=== PATIENT | female | born 1960 | race Caucasian/White ===

== ENCOUNTER 2017-09-14 09:35 | Emergency (ER) | payer MEDICAID ==
[~2017-09-14] VITALS: Ht 157.5 cm; Wt 77.1 kg
[2017-09-14] MEDS ORDERED: IV NORMAL SALINE 1,000ML 1,000 ML IV SCH (10:06)
[2017-09-14] MEDS ORDERED: KETOROLAC 30 MG/ML VIAL. IV ONE (10:15)
[2017-09-14] MEDS ORDERED: ONDANSETRON PF 4 MG/2 ML VIAL. IV ONE (10:15)
[2017-09-14 10:29] LABS: BASO # 0.1 x10^3/uL (0.0-0.2); BASO % 1 % (0-3); EOS # 0.1 x10^3/uL (0.0-0.7); EOS % 1 % (0-3); HEMATOCRIT 51.9 % (36.0-47.0); HEMOGLOBIN 17.7 g/dL (12.0-15.5); LYMPH # 2.2 x10^3/uL (1.0-4.8); LYMPH % 17 % (24-48); MEAN CORPUSCULAR HEMOGLOBIN 29 pg (25-35); MEAN CORPUSCULAR HGB CONC 34 g/dL (31-37); MEAN CORPUSCULAR VOLUME 86 fL (79-100); MONO # 0.8 x10^3/uL (0.0-1.1); MONO % 6 % (0-9); NEUT # 9.4 x10^3uL (1.8-7.7); NEUT % 75 % (31-73); PLATELET COUNT 213 x10^3/uL (140-400); RED BLOOD COUNT 6.03 x10^6/uL (3.50-5.40); RED CELL DISTRIBUTION WIDTH 13.1 % (11.5-14.5); WHITE BLOOD COUNT 12.6 x10^3/uL (4.0-11.0)
[2017-09-14 10:34] LABS: BILIRUBIN,URINE NEG (NEG); CLARITY,URINE CLEAR; COLOR,URINE YELLOW; GLUCOSE,URINE NEG (NEG)
[2017-09-14 10:35] LABS: BACTERIA,URINE 0 /HPF (0-FEW); NITRITE,URINE NEG (NEG); SQUAMOUS EPITHELIAL CELL,UR OCC /LPF; UROBILINOGEN,URINE 0.2 mg/dL (0.2 mg/dL); WBC,URINE 0 /HPF (0-4)
[2017-09-14 10:40] LABS: ALBUMIN 4.4 g/dL (3.4-5.0); ALBUMIN/GLOBULIN RATIO 1.2 (1.0-1.7); CALCIUM 10.4 mg/dL (8.5-10.1); CREATININE 1.2 mg/dL (0.6-1.0); GFR 46.6; TOTAL BILIRUBIN 0.7 mg/dL (0.2-1.0); TOTAL PROTEIN 8.2 g/dL (6.4-8.2)
--- NOTE | 2017-09-14 10:48 | RAD ---
Indication: Right flank pain. Axial imaging through the abdomen and pelvis was performed without contrast. No prior studies are available for comparison. The lung bases are clear. The liver does show a somewhat nodular contour, raising the question of cirrhosis. No discrete liver mass is identified. The gallbladder contains multiple stones. The pancreas is unremarkable. The spleen is normal in size. No adrenal mass is identified. Left kidney is unremarkable. The right kidney is enlarged and demonstrates significant hydroureteronephrosis. The dilated right ureter is traced into the pelvis where there is a 4 mm calculus in the distal right ureter just proximal to the UVJ. There is some mild right perinephric stranding and minimal fluid, suspicious for forniceal rupture. There is a tiny approximately 2 to 3 mm calculus in the region of the left UVJ or just within the urinary bladder. No hydronephrosis on the left side is identified. Aorta is heavily calcified but nonaneurysmal. The small and large bowel loops are normal caliber. There is no ascites. Impression: 1. 4 mm distal right ureteric calculus producing significant hydroureteronephrosis. The right kidney is enlarged and there is perinephric inflammatory stranding and a small amount of perinephric fluid present, suspicious for forniceal rupture. 2. 2 to 3 mm distal left ureteric calculus versus bladder calculus without significant hydronephrosis. 3. Cholelithiasis. 4. Nodular contour to the liver, suspicious for cirrhosis. No other significant normality is seen. PQRS Compliance Statement: One or more of the following individualized dose reduction techniques were utilized for this examination: 1. Automated exposure control 2. Adjustment of the mA and/or kV according to patient size 3. Use of iterative reconstruction technique
[2017-09-14] MEDS ORDERED: IV NORMAL SALINE 1,000ML 1,000 ML IV ONE (11:15)
--- NOTE | 2017-09-14 12:32 | PHYS DOC ---
Past History Past Medical History: Arthritis, Hypertension, Other Past Surgical History: Appendectomy, , Tonsillectomy Smoking: Non-smoker Alcohol Use: Occasionally Drug Use: Marijuana Adult General Chief Complaint Chief Complaint: FLANK PAIN HPI HPI 56-year-old female patient complaining of gradual onset of right back and flank pain since yesterday afternoon as a constant aching pain. Patient complaining of sudden onset of sharp pain in right lower quadrant with radiation to her pelvic and her right flank since 2300 last night episodes of nausea as a constant pain. Patient complaining of increasing intensity of pain intermittently and rated her pain 10 over 10. Patient complaining of urinary frequency since last night without hematuria. Patient denies vomiting, diarrhea and constipation, fever and chills, chest pain, shortness of breath, resent dehydration, history of kidney stone. Review of Systems Review of Systems Constitutional: Reports subjective fever and chills [] Eyes: Denies change in visual acuity, redness, or eye pain [] HENT: Denies nasal congestion or sore throat [] Respiratory: Denies cough or shortness of breath [] Cardiovascular: No additional information not addressed in HPI [] GI: Reports abdominal pain, nausea, denies vomiting, bloody stools or diarrhea [ ] : Reports dysuria and hematuria [] Musculoskeletal: Denies back pain or joint pain [] Integument: Denies rash or skin lesions [] Neurologic: Denies headache, focal weakness or sensory changes [] Endocrine: Denies polyuria or polydipsia [] All other systems were reviewed and found to be within normal limits, except as documented in this note. Current Medications Current Medications Current Medications Medications (Trade) Dose Ordered Sig/Natalia Start Time Stop Time Status Last Admin Dose Admin Fentanyl Citrate (Fentanyl 2ml Vial) 50 mcg 1X ONCE 09/14/17 11:30 09/14/17 11:31 DC 09/14/17 11:12 50 MCG Ketorolac Tromethamine (Toradol) 30 mg 1X ONCE 09/14/17 10:15 09/14/17 10:37 DC 09/14/17 10:23 30 MG Ondansetron HCl (Zofran) 4 mg 1X ONCE 09/14/17 10:15 09/14/17 10:37 DC 09/14/17 10:23 4 MG Sodium Chloride 1,000 ml @ 150 mls/hr 1X ONCE 09/14/17 11:15 09/14/17 17:54 09/14/17 11:15 150 MLS/HR Allergies Allergies Allergies Coded Allergies Type Severity Reaction Last Updated Verified Penicillins Allergy Unknown 09/14/17 Yes Uncoded Allergies Type Severity Reaction Last Updated Verified antidepressants Adverse Reaction Unknown 09/14/17 Physical Exam Physical Exam Constitutional: Well developed, well nourished, moderate distress, non-toxic appearance. [] HENT: Normocephalic, atraumatic, bilateral external ears normal, oropharynx moist, no oral exudates, nose normal. [] Eyes: PERRLA, EOMI, conjunctiva normal, no discharge. [] Neck: Normal range of motion, no tenderness, supple, no stridor. [] Cardiovascular:Heart rate regular rhythm, no murmur [] Lungs & Thorax: Bilateral breath sounds clear to auscultation [] Abdomen: Bowel sounds normal, soft, right lower quadrant and right upper tenderness, no masses, no pulsatile masses. [] Skin: Warm, dry, no erythema, no rash. [] Back: No tenderness, right CVA tenderness. [] Extremities: No tenderness, no cyanosis, no clubbing, ROM intact, no edema. [] Neurologic: Alert and oriented X 3, normal motor function, normal sensory function, no focal deficits noted. [] Psychologic: Affect normal, judgement normal, mood normal. [] Current Patient Data Vital Signs Vital Signs Date Time Temp Pulse Resp B/P (MAP) Pulse Ox O2 Delivery O2 Flow Rate FiO2 09/14/17 11:12 20 98 Room Air 09/14/17 09:35 97.9 91 Lab Results Laboratory Tests Test 09/14/17 10:15 09/14/17 11:38 White Blood Count 12.6 x10^3/uL (4.0-11.0) H Red Blood Count 6.03 x10^6/uL (3.50-5.40) H Hemoglobin 17.7 g/dL (12.0-15.5) H Hematocrit 51.9 % (36.0-47.0) H Mean Corpuscular Volume 86 fL (79-100) Mean Corpuscular Hemoglobin 29 pg (25-35) Mean Corpuscular Hemoglobin Concent 34 g/dL (31-37) Red Cell Distribution Width 13.1 % (11.5-14.5) Platelet Count 213 x10^3/uL (140-400) Neutrophils (%) (Auto) 75 % (31-73) H Lymphocytes (%) (Auto) 17 % (24-48) L Monocytes (%) (Auto) 6 % (0-9) Eosinophils (%) (Auto) 1 % (0-3) Basophils (%) (Auto) 1 % (0-3) Neutrophils # (Auto) 9.4 x10^3uL (1.8-7.7) H Lymphocytes # (Auto) 2.2 x10^3/uL (1.0-4.8) Monocytes # (Auto) 0.8 x10^3/uL (0.0-1.1) Eosinophils # (Auto) 0.1 x10^3/uL (0.0-0.7) Basophils # (Auto) 0.1 x10^3/uL (0.0-0.2) Urine Collection Type Unknown Urine Color Yellow Urine Clarity Clear Urine pH 6.5 Urine Specific [place] 1.015 Urine Protein Neg (NEG-TRACE) Urine Glucose (UA) Neg mg/dL (NEG) Urine Ketones (Stick) Trace mg/dL (NEG) Urine Blood Small (NEG) Urine Nitrite Neg (NEG) Urine Bilirubin Neg (NEG) Urine Urobilinogen Dipstick 0.2 mg/dL (0.2 mg/dL) Urine Leukocyte Esterase Neg (NEG) Urine RBC 1-2 /HPF (0-2) Urine WBC 0 /HPF (0-4) Urine Squamous Epithelial Cells Occ /LPF Urine Bacteria 0 /HPF (0-FEW) Sodium Level 136 mmol/L (136-145) Potassium Level 4.0 mmol/L (3.5-5.1) Chloride Level 97 mmol/L (98-107) L Carbon Dioxide Level 28 mmol/L (21-32) Anion Gap 11 (6-14) Blood Urea Nitrogen 13 mg/dL (7-20) Creatinine 1.2 mg/dL (0.6-1.0) H Estimated GFR (Cockcroft-Gault) 46.6 BUN/Creatinine Ratio 11 (6-20) Glucose Level 120 mg/dL (70-99) H Calcium Level 10.4 mg/dL (8.5-10.1) H Total Bilirubin 0.7 mg/dL (0.2-1.0) Aspartate Amino Transferase (AST) 14 U/L (15-37) L Alanine Aminotransferase (ALT) 20 U/L (14-59) Alkaline Phosphatase 74 U/L (46-116) Troponin I Quantitative < 0.017 ng/mL (0-0.055) Total Protein 8.2 g/dL (6.4-8.2) Albumin 4.4 g/dL (3.4-5.0) Albumin/Globulin Ratio 1.2 (1.0-1.7) Lipase 167 U/L (73-393) Lactic Acid Level 1.0 mmol/L (0.4-2.0) EKG EKG [] Radiology/Procedures Radiology/Procedures [] Course & Med Decision Making Course & Med Decision Making Pertinent Labs and Imaging studies reviewed. (See chart for details) Evaluation of patient in ER showed 56-year-old female patient with complaining of sudden onset of back pain and flank pain since yesterday. Patient had kidney stone symptom with leukocytosis and 4 mm obstructing stone in the right UV junction. Lactic acid was negative and patient did not have tachycardia or hypotension or sign of sepsis. Because of nephritic inflammation and edema plan to admit patient to hospital. Hospitalist administrative professional Dr Nguyen was informed at 1126 and recommended to transfer patient to place with urologist.. Patient requesting transferring to [facility]. Dr. Zacarias administrative professional urology and Dr. Seth Ying Hospitalist accepted transfer at 1128 to [facility]. Patient requires several doses of pain medication she was in ER. Dragon Disclaimer Dragon Disclaimer This electronic medical record was generated, in whole or in part, using a voice recognition dictation system. Departure Departure: Impression: Primary Impression: Renal colic on right side Additional Impressions: Ureterolithiasis Hydronephrosis Perinephritis Cholelithiasis Leukocytosis Disposition: 02 XFER SHT-TRM HOSP (at 1228 to [facility]) Condition: IMPROVED Referrals: PCP,NO (PCP) Problem Qualifiers YURIY CONNER MD Sep 14, 2017 12:32
[2017-09-14 14:11] VITALS: BP 133/67
== END 2017-09-14 14:11 | disposition short-term general hospital (02) ==
LOC: ER 09:35
DX: N13.2 Hydronephrosis with renal and ureteral calculous obstruction (principal); N15.9 Renal tubulo-interstitial disease, unspecified; K80.20 Calculus of gallbladder without cholecystitis without obstruction; D72.829 Elevated white blood cell count, unspecified; I10 Essential (primary) hypertension; F12.10 Cannabis abuse, uncomplicated; Z88.0 Allergy status to penicillin
CPT/HCPCS: 36415; 74176; 80053; 81001; 83605; 83690; 84484; 85025; 87040; 96361; 96374; 96375; 96376; 99285; J1885; J2405; J3010; J7030